=== PATIENT | female | born 2000 | race Two or more races ===

== ENCOUNTER 2020-09-22 15:06 | Outpatient (RCR) | payer MEDICARE, SELFPAY | END 2020-11-08 23:59 | LOC: IMMUN 15:06 | PROVIDERS: Referring Provider Family Medicine; Visit Provider Family Medicine | DX: Z23 Encounter for immunization (principal) | CPT/HCPCS: 0001A; 0002A; 91300 ==

== ENCOUNTER → 2021-05-11 10:52 | Outpatient (CLI) | payer MEDICARE, SELFPAY | PROVIDERS: Visit Provider Family Medicine | DX: Z23 Encounter for immunization (principal) ==